=== PATIENT | female | born 1985 | race African-American/Black ===

== ENCOUNTER 2023-11-21 05:46 | Day surgery (SDC) | payer OTHER ==
[2023-11-14 15:59] VITALS: BMI 47.2
[2023-11-21] MEDS ORDERED: Bupivacaine 0.25% HCL 30 ML VIAL ONE (06:43)
[2023-11-21] MEDS ORDERED: Indocyanine Green 25 MG/10 ML VIAL ONE (06:43)
[2023-11-21] MEDS ORDERED: EPINEPHrine 1 MG/ML VIAL ONE (06:43)
[2023-11-21] MEDS ORDERED: Lidocaine 1% PF 5 ML VIAL ONE (07:02)
[2023-11-21] MEDS ORDERED: fentaNYL PF 100 MCG/2 ML SYRINGE ONE ×4 (07:02→09:42)
[2023-11-21] MEDS ORDERED: Rocuronium Bromide 10 MG/ML (10ML VIAL) ONE (07:02)
[2023-11-21] MEDS ORDERED: PROPOFOL 20 ML ONE ×2 (07:02→07:42)
[2023-11-21] MEDS ORDERED: CEFAZOLIN 2 GM VIAL ONE (07:25)
[2023-11-21] MEDS ORDERED: Sodium Chloride 0.9% 100 ML ONE (07:25)
[2023-11-21] MEDS ORDERED: Lidocaine 2% 6 ML (Jelly) SYR ONE (07:41)
[2023-11-21] MEDS ORDERED: Ondansetron PF 4 MG/2 ML Vial ONE (07:50)
[2023-11-21] MEDS ORDERED: Dexamethasone 20 MG/5 ML VIAL ONE (07:50)
[2023-11-21] MEDS ORDERED: ePHEDrine Sulfate 50 MG/10 ML VIAL ONE (08:00)
[2023-11-21] MEDS ORDERED: Glycopyrrolate 0.2 MG/ML 5 ML SYRINGE ONE (08:00)
[2023-11-21] MEDS ORDERED: HYDROmorphone 0.5 MG/0.5 ML SYRINGE ONE ×2 (09:04→09:18)
[2023-11-21] MEDS ORDERED: Ketorolac Tromethamine 30 MG (1 mL) VIAL ONE (09:42)
[2023-11-21] MEDS ORDERED: SUGAMMADEX SODIUM 200 MG/2 ML VIAL ONE ×2 (09:42)
[2023-11-21] MEDS ORDERED: Dexmedetomidine 200 MCG/2 ML VIAL ONE (09:42)
[2023-11-21] MEDS ORDERED: HYDROcodone/Acetaminophen 5/325 mg Tablet ONE (10:29)
== END 2023-11-21 11:15 | disposition home or self-care (01) ==
LOC: SDC 05:46
PROVIDERS: ATTEND Surgery
PROC: 0FT44ZZ Resection of Gallbladder, Percutaneous Endoscopic Approach (ICD-10-PCS; principal; 2023-11-21)
DX: K80.10 Calculus of gallbladder with chronic cholecystitis without obstruction (principal); I10 Essential (primary) hypertension; Z79.899 Other long term (current) drug therapy
CPT/HCPCS: 88304; C1889; J0171; J0665; J1100; J1170; J1885; J2405; J2704; J3490